=== PATIENT | male | born 1950 | race African-American/Black ===

== ENCOUNTER 2018-12-02 23:23 | Emergency (ER) | payer OTHER ==
[~2018-12-02] VITALS: Ht 167.6 cm; Wt 83.9 kg
[~2018-12-02 23:23] MED LIST: ASPIR 8181 MG ORAL; ASPIRIN81 MG ORAL; ISOSORBIDE DINI10 MG ORAL; NITRO-BID1 GM TOPIC; NITROGLYCERIN0.4 MG SL; RANITIDINE HCL150 MG ORAL; TEGRETOL200 MG PO
[2018-12-02] MEDS ORDERED: NKM (23:32)
--- NOTE | 2018-12-02 23:47 | NUR ---
ED Nurse Note: Spoke with Sanna at Poison Control: Observe for tachycardia, hypertention, hallucinations, and aggitation. More sever toxity: Seizures, hypothermia, rabdo, and renal failure. Tx: Eight hours of observation, IVFs, chemistries with liver function, EKG, seizure precautions. Benzos prn for seizures, phenobarb if seizure refractive to benzos. Repeat lab and EKG in four hours.
[2018-12-03] MEDS: Albuterol ud Inhalation HHN SCH ×2 (00:43→01:00)
[2018-12-03] MEDS: Ipratropium 0.02% Inh Soln 2.5ml UD HHN SCH ×2 (00:43→01:00)
[2018-12-03 00:46] VITALS: BP 140/76
[2018-12-03 00:54] LABS: BASOPHILS % (AUTO) 0.8 % (0.0-2.0); EOSINOPHILS % (AUTO) 2.4 % (0.0-3.0); HEMATOCRIT 46.5 % (42.0-52.0); HEMOGLOBIN 14.9 G/DL (14.2-18.0); LYMPHOCYTES % (AUTO) 24.8 % (20.0-45.0); MEAN CORPUSCULAR VOLUME 80 FL (80-99); MONOCYTES % (AUTO) 5.6 % (1.0-10.0); NEUTROPHILS % (AUTO) 66.3 % (45.0-75.0); PLATELET COUNT 294 K/UL (150-450); RED BLOOD COUNT 5.81 M/UL (4.70-6.10); RED CELL DISTRIBUTION WIDTH 13.7 % (11.6-14.8); WHITE BLOOD COUNT 11.5 K/UL (4.8-10.8)
[2018-12-03 01:06] LABS: ANION GAP 15 mmol/L (5-15); BLOOD UREA NITROGEN 12 mg/dL (7-18); CALCIUM 9.1 MG/DL (8.5-10.1); CARBON DIOXIDE 21 MMOL/L (21-32); CHLORIDE 105 MMOL/L (98-107); CREATININE 1.1 MG/DL (0.55-1.30); POTASSIUM 3.8 MMOL/L (3.5-5.1); SODIUM 141 MMOL/L (136-145)
[2018-12-03 01:19] LABS: ALANINE AMINOTRANSFERASE 29 U/L (12-78); ALBUMIN 3.3 G/DL (3.4-5.0); ALKALINE PHOSPHATASE 82 U/L (46-116); ASPARTATE AMINO TRANSFERASE 24 U/L (15-37); BILIRUBIN,TOTAL 0.3 MG/DL (0.2-1.0); CREATINE KINASE 364 U/L (26-308)
[2018-12-03] MEDS ORDERED: Morphine Sulfate 4mg/ml Inj (IV USE ONLY) IVP ONE (02:00)
--- NOTE | 2018-12-03 03:12 | NUR ---
ER Nurse Note: Pt asleep, calm, no signs of distress, VSS. Awaiting lab redraw at 0430. Will continue to montior.
--- NOTE | 2018-12-03 03:40 | NUR ---
Maty larsen in EDM - 12/03/18 at 0341 by [facility] ED Nurse Note: care endorsed to MARIYA MORALES and report given.
--- NOTE | 2018-12-03 04:16 | Emergency Room Report ---
History of Present Illness General Chief Complaint: General Complaint Source: Patient Present Illness HPI 68-year-old male presents to ED for evaluation. Patient is in police custody. Is here for senior living clearance. Patient states that he ingested 6 crack rocks tonight prior to being arrested. Complaining of shortness of breath. History of asthma. Denies chest pain. Denies fevers or chills. Denies nausea or vomiting. Denies any abdominal pain. No other aggravating relieving factors. Denies any other associated symptoms Allergies: Coded Allergies: PENICILLINS (Unverified Allergy, Unknown, 10/22/14) Patient History Past Medical History: HTN, [place], seizures Past Surgical History: none Pertinent Family History: none Social History: Reports: drug use; Denies: smoking, alcohol use Immunizations: UTD Reviewed Nursing Documentation: PMH: Agreed; PSxH: Agreed Nursing Documentation-PMH Hx Cardiac Problems: Yes - mi Hx Hypertension: Yes Hx Cancer: No Hx Gastrointestinal Problems: No Hx Neurological Problems: No Hx Seizures: Yes Review of Systems All Other Systems: negative except mentioned in HPI Physical Exam Vital Signs Date Time Temp Pulse Resp B/P (MAP) Pulse Ox O2 Delivery O2 Flow Rate FiO2 12/02/18 23:27 98.4 106 16 100 Room Air 12/03/18 00:43 21 12/03/18 00:46 140/76 Sp02 EP Interpretation: reviewed, normal General Appearance: alert, GCS 15, non-toxic, mild distress Head: normocephalic, atraumatic Eyes: bilateral eye normal inspection, bilateral eye PERRL ENT: hearing grossly normal, normal pharynx, no angioedema, normal voice Neck: full range of motion, supple/symm/no masses Respiratory: chest non-tender, speaking full sentences, wheezing Cardiovascular #1: regular rate, rhythm, no edema Cardiovascular #2: 2+ carotid (R), 2+ carotid (L), 2+ radial (R), 2+ radial (L) , 2+ dorsalis pedis (R), 2+ dorsalis pedis (L) Gastrointestinal: normal bowel sounds, non tender, soft, non-distended, no guarding, no rebound Rectal: deferred Genitourinary: normal inspection, no CVA tenderness Musculoskeletal: back normal, gait/station normal, normal range of motion, non- tender Neurologic: alert, oriented x3, responsive, motor strength/tone normal, sensory intact, speech normal Psychiatric: judgement/insight normal, memory normal, mood/affect normal, no suicidal/homicidal ideation Reflexes: 3+ bicep (R), 3+ bicep (L), 3+ tricep (R), 3+ tricep (L), 3+ knee (R) , 3+ knee (L) Skin: normal color, no rash, warm/dry, well hydrated Lymphatic: no adenopathy Medical Decision Making Diagnostic Impression: Primary Impression: Medical clearance for incarceration Additional Impression: Drug abuse ER Course Hospital Course 68-year-old M presents ED complaining of chest pain, SOB. in police custody. states he ate 6 crack rocks. Differential diagnoses include: coronary vasospasm, ACS/FL, rhabdomyolysis Clinical course Patient placed on stretcher. After initial history and physical I ordered labs , EKG, chest x-ray, KUB, nebs EKG - NSR, no acute ischemic changes interpreted by me discussed with poison control. they recommend 8 hour observation on nuclear monitoring technician. IV hydration, monitor for signs of rhabdo, Benzos prn labs reviewed- all electrolytes normal, troponins negative, no leukocytosis, hemoglobin/hematocrit stable Chest x-ray-no cardiomegaly, no rib fracture, no pneumothorax, no acute process KUB - no signs of ingested material, normal bowel pattern Repeat labs including troponin and CK were also within normal limits 4 hours later I reviewed EMR. Patient has been here multiple times for senior living clearance. Always complaining of chest pain upon arrest. workups have always been negative patient will be medically cleared. I. I feel this is a highly complex case requiring extensive working including EKG/Rhythm strip, Xray/CT/US, Blood/urine lab work, repeat exams while in ED, and administration of strong opiates/narcotics for pain control, admission to hospital or close patient follow up. Diagnosis - medical clearance for incarceration, drug abuse Stable and discharged to police custody. Instructed to followup with PMD. Return to ED if symptoms recur or worsen Labs Test 12/03/18 00:35 12/03/18 01:50 12/03/18 04:43 White Blood Count 11.5 K/UL (4.8-10.8) Red Blood Count 5.81 M/UL (4.70-6.10) Hemoglobin 14.9 G/DL (14.2-18.0) Hematocrit 46.5 % (42.0-52.0) Mean Corpuscular Volume 80 FL (80-99) Mean Corpuscular Hemoglobin 25.7 PG (27.0-31.0) Mean Corpuscular Hemoglobin Concent 32.1 G/DL (32.0-36.0) Red Cell Distribution Width 13.7 % (11.6-14.8) Platelet Count 294 K/UL (150-450) Mean Platelet Volume 5.8 FL (6.5-10.1) Neutrophils (%) (Auto) 66.3 % (45.0-75.0) Lymphocytes (%) (Auto) 24.8 % (20.0-45.0) Monocytes (%) (Auto) 5.6 % (1.0-10.0) Eosinophils (%) (Auto) 2.4 % (0.0-3.0) Basophils (%) (Auto) 0.8 % (0.0-2.0) Sodium Level 141 MMOL/L (136-145) 141 MMOL/L (136-145) Potassium Level 3.8 MMOL/L (3.5-5.1) 3.9 MMOL/L (3.5-5.1) Chloride Level 105 MMOL/L (98-107) 108 MMOL/L (98-107) Carbon Dioxide Level 21 MMOL/L (21-32) 26 MMOL/L (21-32) Anion Gap 15 mmol/L (5-15) 7 mmol/L (5-15) Blood Urea Nitrogen 12 mg/dL (7-18) 9 mg/dL (7-18) Creatinine 1.1 MG/DL (0.55-1.30) 0.8 MG/DL (0.55-1.30) Estimat Glomerular Filtration Rate > 60 mL/min (>60) > 60 mL/min (>60) Glucose Level 112 MG/DL (74-106) 122 MG/DL (74-106) Calcium Level 9.1 MG/DL (8.5-10.1) 8.3 MG/DL (8.5-10.1) Total Bilirubin 0.3 MG/DL (0.2-1.0) 0.2 MG/DL (0.2-1.0) Aspartate Amino Transf (AST/SGOT) 24 U/L (15-37) 25 U/L (15-37) Alanine Aminotransferase (ALT/SGPT) 29 U/L (12-78) 25 U/L (12-78) Alkaline Phosphatase 82 U/L (46-116) 68 U/L (46-116) Total Creatine Kinase 364 U/L (26-308) 283 U/L (26-308) Creatine Kinase MB 5.0 NG/ML (0.0-3.6) 4.0 NG/ML (0.0-3.6) Creatine Kinase MB Relative Index 1.3 1.4 Troponin I 0.005 ng/mL (0.000-0.056) 0.003 ng/mL (0.000-0.056) Total Protein 6.6 G/DL (6.4-8.2) 5.8 G/DL (6.4-8.2) Albumin 3.3 G/DL (3.4-5.0) 2.8 G/DL (3.4-5.0) Globulin 3.3 g/dL 3.0 g/dL Albumin/Globulin Ratio 1.0 (1.0-2.7) 0.9 (1.0-2.7) Urine Opiates Screen Negative (NEGATIVE) Urine Barbiturates Screen Negative (NEGATIVE) Phencyclidine (PCP) Screen Positive (NEGATIVE) Urine Amphetamines Screen Positive (NEGATIVE) Urine Benzodiazepines Screen Negative (NEGATIVE) Urine Cocaine Screen Positive (NEGATIVE) Urine Marijuana (THC) Screen Negative (NEGATIVE) Salicylates Level 1.3 ug/mL (2.8-20) Acetaminophen Level < 2 MCG/ML (10-30) EKG Diagnostic Results Rate: normal Rhythm: NSR ST Segments: no acute changes Rhythm Strip Diag. Results EP Interpretation: yes Rhythm: NSR, no PVC's, no ectopy Chest X-Ray Diagnostic Results Chest X-Ray Diagnostic Results : Chest X-Ray Ordered: Yes # of Views/Limited/Complete: 1 View Indication: Shortness of Breath EP Interpretation: Yes Interpretation: no consolidation, no effusion, no pneumothorax, no acute cardiopulmonary disease Impression: No acute disease Electronically Signed by: Electronically signed by Lawrence Steiner MD Other X-Ray Diagnostic Results Other X-Ray Diagnostic Results : X-Ray ordered: KUB # of Views/Limited Vs Complete: 1 View Indication: Pain EP Interpretation: Yes Interpretation: nonspecific bowel gas, no sbo Impression: No acute disease Electronically Signed by: Electronically signed by Lawrence Steiner MD Last Vital Signs Date Time Temp Pulse Resp B/P (MAP) Pulse Ox O2 Delivery O2 Flow Rate FiO2 12/03/18 01:11 97 17 100 Room Air 21 12/03/18 00:46 98.4 140/76 Status: improved Disposition: D/C TO LAW ENFORCEMENT IN [facility] Condition: Stable Referrals: NOT CHOSEN IPA/,REFERRING (PCP) Lawrence Steiner MD Dec 03, 2018 04:16
[2018-12-03 04:25] VITALS: BP 128/74
[2018-12-03 05:49] LABS: ANION GAP 7 mmol/L (5-15); BLOOD UREA NITROGEN 9 mg/dL (7-18); CALCIUM 8.3 MG/DL (8.5-10.1); CARBON DIOXIDE 26 MMOL/L (21-32); CHLORIDE 108 MMOL/L (98-107); CREATININE 0.8 MG/DL (0.55-1.30); POTASSIUM 3.9 MMOL/L (3.5-5.1); SODIUM 141 MMOL/L (136-145)
[2018-12-03 06:04] LABS: ALANINE AMINOTRANSFERASE 25 U/L (12-78); ALBUMIN 2.8 G/DL (3.4-5.0); ALBUMIN/GLOBULIN RATIO 0.9 (1.0-2.7); ALKALINE PHOSPHATASE 68 U/L (46-116); ASPARTATE AMINO TRANSFERASE 25 U/L (15-37); BILIRUBIN,TOTAL 0.2 MG/DL (0.2-1.0); CREATINE KINASE 283 U/L (26-308)
[2018-12-03 06:44] VITALS: BP 130/76
--- NOTE | 2018-12-03 06:46 | NUR ---
ER Nurse Note: Pt seen, treated, medically cleared for booking by ERMD. Discharge instructions and prescriptions given wtih repeat verbaliazation by pt. Pt refused to sign forms. I Pt a&ox4, VSS, no signs of dsitress, no resp distresss. All orders completed per ERMD orders. Pt able to ambulate safely without assistance. IV removed; site clean and bandaged. ID removed. Pt left with [employer] custody.
--- NOTE | 2018-12-03 11:41 | Diagnostic Imaging Report ---
Indication: Shortness of breath Technique: One view of the chest Comparison: 04/15/2015 Findings: Inspiration is suboptimal. There is some atelectasis at the left lung base. Lungs and pleural spaces are otherwise clear. Heart size is normal Impression: No acute process Hypoventilatory exam with minimal left basilar atelectasis
--- NOTE | 2018-12-03 13:23 | Cardiology Report ---
APPROVED REPORT EKG Measurement Heart [id number] ID [id number] Normal sinus rhythm Right atrial enlargement Left axis deviation Abnormal ECG
--- NOTE | 2018-12-03 13:24 | Cardiology Report ---
APPROVED REPORT EKG Measurement Heart [id number] Normal sinus rhythm Normal ECG
--- NOTE | 2018-12-03 14:53 | Diagnostic Imaging Report ---
Indication: Abdominal Technique: Supine view of the abdomen Comparison: none Findings: Bowel gas pattern is unremarkable. No masses or unusual calcifications Impression: No acute process
== END 2018-12-03 06:30 ==
LOC: EDBD 23:23 → EMR 23:49
DX: F14.10 Cocaine abuse, uncomplicated (principal); Z88.0 Allergy status to penicillin; I10 Essential (primary) hypertension; I25.2 Old myocardial infarction
CPT/HCPCS: 36415; 71045; 74018; 80053; 80307; 82550; 82553; 84484; 85025; 93005; 94640; 96361; 96374; 99284; G0480; J2270; 80329

== ENCOUNTER 2019-05-27 17:02 | Emergency (ER) | payer OTHER ==
[~2019-05-27] VITALS: Ht 170.2 cm; Wt 81.6 kg
[~2019-05-27 17:02] MED LIST changes: +NKM
--- NOTE | 2019-05-27 17:50 | NUR ---
ED Nurse Note:pt. was BIBA for medical clearance for assisted booking, he c/o general weakness and dizziness, VSS, pt. is A/Ox4, forensic screaning was done, blood sent to labs
[2019-05-27 18:03] VITALS: BP 134/64
[2019-05-27 18:04] LABS: HEMATOCRIT 44.3 % (42.0-52.0); HEMOGLOBIN 13.7 G/DL (14.2-18.0); LYMPHOCYTES % (AUTO) 26.5 % (20.0-45.0); MEAN CORPUSCULAR VOLUME 83 FL (80-99); MONOCYTES % (AUTO) 6.3 % (1.0-10.0); NEUTROPHILS % (AUTO) 64.1 % (45.0-75.0); PLATELET COUNT 310 K/UL (150-450); RED BLOOD COUNT 5.37 M/UL (4.70-6.10); RED CELL DISTRIBUTION WIDTH 13.3 % (11.6-14.8); WHITE BLOOD COUNT 9.4 K/UL (4.8-10.8)
[2019-05-27 18:24] LABS: ANION GAP 11 mmol/L (5-15); BLOOD UREA NITROGEN 14 mg/dL (7-18); CALCIUM 8.8 MG/DL (8.5-10.1); CARBON DIOXIDE 26 MMOL/L (21-32); CHLORIDE 108 MMOL/L (98-107); POTASSIUM 4.1 MMOL/L (3.5-5.1); SODIUM 145 MMOL/L (136-145)
[2019-05-27 18:36] LABS: ALANINE AMINOTRANSFERASE 39 U/L (12-78); ALBUMIN 3.4 G/DL (3.4-5.0); ALKALINE PHOSPHATASE 77 U/L (46-116); ASPARTATE AMINO TRANSFERASE 28 U/L (15-37); BILIRUBIN,TOTAL 0.3 MG/DL (0.2-1.0)
--- NOTE | 2019-05-27 18:57 | Emergency Room Report ---
History of Present Illness General Chief Complaint: Medical Clearance Source: Medical Record Present Illness HPI 69-year-old male with history of methamphetamine abuse, and hypotension brought in by police officers for medical clearance. Patient reports that he has been dizzy for the past 2 days. He reports that he fell and hit his head. Denies loss of consciousness, headache, nausea vomiting. Denies chest pain, shortness of breath, palpitation, abdominal pain, nausea vomiting. Patient also reports of left foot pain however follow-up injuring his foot. Loss of callus is noted in the bottom of his foot. Also upon examination of the patient's foot I found a pipe containing crystal mass which the police already contained. This examination was observed and witnessed by the police officers. Patient has a stable vital signs. Denies abdominal pain, urinary symptoms. Patient reports that he has been dealing with low blood pressure for years and wants to be admitted and be further looked into. Patient also has brought this up to his primary care provider however given insisting on being admitted and finding of the reason why her blood pressure. Patient denies that his methamphetamine use has anything to do with this. Denies other associated symptoms. Allergies: Coded Allergies: PENICILLINS (Unverified Allergy, Unknown, 10/22/14) Patient History Past Medical History: see triage record Past Surgical History: unable to obtain Pertinent Family History: none Immunizations: UTD Reviewed Nursing Documentation: PMH: Agreed; PSxH: Agreed Nursing Documentation-PMH Past Medical History: No History, Except For Hx Cardiac Problems: Yes - mi Hx Hypertension: Yes Hx Cancer: No Hx Gastrointestinal Problems: No Hx Neurological Problems: No Hx Seizures: Yes Review of Systems All Other Systems: negative except mentioned in HPI Physical Exam Vital Signs Date Time Temp Pulse Resp B/P (MAP) Pulse Ox O2 Delivery O2 Flow Rate FiO2 05/27/19 17:04 98.1 80 18 134/64 (87) 98 Room Air Sp02 EP Interpretation: reviewed, normal General Appearance: no apparent distress, alert, GCS 15, non-toxic Head: normocephalic, atraumatic Eyes: bilateral eye normal inspection, bilateral eye PERRL ENT: hearing grossly normal, normal pharynx, no angioedema, normal voice Neck: full range of motion, supple/symm/no masses Respiratory: chest non-tender, lungs clear, normal breath sounds, no rhonchi, no respiratory distress, speaking full sentences Cardiovascular #1: regular rate, rhythm, no edema Cardiovascular #2: 2+ carotid (R), 2+ carotid (L), 2+ radial (R), 2+ radial (L) , 2+ dorsalis pedis (R), 2+ dorsalis pedis (L) Gastrointestinal: normal bowel sounds, non tender, soft, non-distended, no guarding, no rebound Rectal: deferred Genitourinary: normal inspection, no CVA tenderness Musculoskeletal: back normal, gait/station normal, normal range of motion, non- tender, calf tenderness Neurologic: alert, oriented x3, responsive, motor strength/tone normal, sensory intact, speech normal, other - No sensory or motor deficits noted Psychiatric: judgement/insight normal, memory normal, mood/affect normal, no suicidal/homicidal ideation Skin: no rash Lymphatic: no adenopathy Medical Decision Making PA Attestation All my diagnosis and treatment plans were reviewed ad discussed with my supervising physician Dr. Cheng Diagnostic Impression: Primary Impression: Medical clearance for incarceration Additional Impressions: Head contusion Foot contusion ER Course 69-year-old male with history of methamphetamine abuse, and hypotension brought in by police officers for medical clearance. Patient reports that he has been dizzy for the past 2 days. He reports that he fell and hit his head. Denies loss of consciousness, headache, nausea vomiting. Denies chest pain, shortness of breath, palpitation, abdominal pain, nausea vomiting. Patient also reports of left foot pain however follow-up injuring his foot. Loss of callus is noted in the bottom of his foot. Also upon examination of the patient's foot I found a pipe containing crystal mass which the police already contained. This examination was observed and witnessed by the police officers. Patient has a stable vital signs. Denies abdominal pain, urinary symptoms. Patient reports that he has been dealing with low blood pressure for years and wants to be admitted and be further looked into. Patient also has brought this up to his primary care provider however given insisting on being admitted and finding of the reason why her blood pressure. Patient denies that his methamphetamine use has anything to do with this. Denies other associated symptoms. Ddx considered but are not limited to: cerebral hematoma, concussion, skull fracture, head contusion Vital signs: are WNL, pt. is afebrile H&PE are most consistent with: Head contusion, foot contusion, medical clearance ORDERS: head CT no contrast , EKG, chest x-ray, CBC, CMP, UA, tox screen, EtOH, ibuprofen ED INTERVENTIONS: NS bolus DISCHARGE: At this time pt. is stable for d/c to home. Will provide printed patient care instructions, and any necessary prescriptions. Care plan and follow up instructions have been discussed with the patient prior to discharge. Patient Verbalizing that I am treating her differently since he is going to long term and I have not worked him up thoroughly in order to do that for his chronic issues I should keep him overnight and hospitalized him. Patient reports that he has history of hypertension and he has been here multiple times for same reason. However patient has never follow-up with his primary care provider in this regard has never seen a lath tier or neurologist. Patient keeps saying that he keeps falling and injuring his head. Completely denies the fact that he is smoking and also using methamphetamine and does not want to believe that that can contribute to his symptoms. I explained to the patient that I have treated him just like any other patient and in order to find out further reasons for his hypotension and dizziness patient to be evaluated by primary care provider and perhaps to be sent to specialist accordingly. at this time proper assessment and treatment was done EKG to rule out dizziness secondary to cardiac issue, blood work to rule out infection and electrolyte abnormality, urine tox screen. Patient also had a scan done and was normal. Patient was discharged to go to incarceration. Please have this is also explained to him that he needs to follow-up with his primary care provider after being incarcerated. Patient wanted my name and information down. Reported that he is usually get treated differently when he comes for medical clearance. I also explained to him that I did all the appropriate physical examination ruling out stroke symptoms and other causes of dizziness in order appropriate imaging and blood work. And him having the status of incarceration did not affect my medical judgment. I also told patient that he is more than welcome to return to the emergency room for worsening symptoms. I advised the patient to stop using methamphetamine. Patient however did not give a urine sample. Therefore tox screen was not done and urine analysis was not done. EKG Diagnostic Results Rate: normal Rhythm: NSR ST Segments: no acute changes Chest X-Ray Diagnostic Results Chest X-Ray Diagnostic Results : Chest X-Ray Ordered: Yes # of Views/Limited/Complete: 1 View Indication: Other EP Interpretation: Yes CAROL ANN Xray: Interpretation reviewed, by supervising MD, and agrees with findings. Interpretation: no consolidation, no effusion, no pneumothorax Impression: No acute disease Electronically Signed by: Brennon Horta PA-C CT/MRI/US Diagnostic Results CT/MRI/US Diagnostic Results : Imaging Test Ordered: CT head no contrast Impression WNL Last Vital Signs Date Time Temp Pulse Resp B/P (MAP) Pulse Ox O2 Delivery O2 Flow Rate FiO2 05/27/19 18:03 80 18 Room Air 05/27/19 18:03 98.1 134/64 98 Disposition: D/C TO [facility] ENFORCEMENT IN [facility]UST Condition: Stable Scripts Ibuprofen* (MOTRIN*) 600 Mg Tablet 600 MG ORAL THREE TIMES A DAY, #30 TAB 0 Refills Prov: Brennon Chiang 05/27/19 Referrals: NOT CHOSEN [facility]/,REFERRING (PCP) Patient Instructions: Facial or Scalp Contusion, [id number], Foot Contusion, [id number] Additional Instructions: Take medication as directed follow-up with your primary care provider if worsening symptoms return to the emergency room follow-up with building performance specialist regarding your foot as there are old findings of degenerative changes and deformity. Brennon Chiang May 27, 2019 18:57
[2019-05-27] MEDS ORDERED: IBUPROFEN600 MG ORAL (18:58)
[2019-05-27 19:21] VITALS: BP 133/85
--- NOTE | 2019-05-27 19:22 | NUR ---
ED Nurse Note:pt. was cleared for d/c by er PA, IV line was removed, [employer] officer signed d/c instructions and pt. was taken for [facility] booking
[2019-05-27 19:23] VITALS: BP 133/85
--- NOTE | 2019-05-28 11:02 | Diagnostic Imaging Report ---
Indication: Headache and head trauma Technique: Contiguous 5 mm thick transaxial imaging of the head obtained in a Siemens Sensation [address] scanner. Soft tissue and bone windows generated. Automatic Exposure Control was utilized. Total Dose length Product (DLP): 1428.[address] Dose Index Volume (CTDIvol): 70.38 mGy Comparison: none Findings: There is minimal prominence of the ventricles, basal cisterns, and cerebral sulci consistent with atrophy, which appears age appropriate. There is no midline shift, edema, acute hemorrhage, mass effect, or abnormal extra-axial fluid collections. Bones are unremarkable. Impression: No acute intracranial bleed, mass effect or edema. Mild age-appropriate atrophy of the brain. The CT scanner at [facility] is accredited by the [employer] and the scans are performed using dose optimization techniques as appropriate to a performed exam including Automatic Exposure control.
--- NOTE | 2019-05-28 13:28 | Diagnostic Imaging Report ---
Indication: Chest pain Comparison: 12/03/2018 A single view chest radiograph was obtained. Findings: Cardiomediastinal appearance is within normal limits for age. The lungs are clear. Pulmonary vascularity is appropriate. The diaphragmatic contour is smooth and costophrenic angles are sharp. No pleural effusions are identified. The bones are unremarkable. Impression: No acute findings
--- NOTE | 2019-05-28 13:31 | Diagnostic Imaging Report ---
Indication: Foot pain Comparison: None Findings: 3 views of the left foot were obtained. No acute fractures, malalignment, erosions or periostitis are identified. Hammertoes noted second through fifth toes. Some degenerative disease at the base of the first metatarsal noted. Soft tissues are unremarkable. Impression: No acute findings
== END 2019-05-27 19:24 ==
LOC: EDBD 17:02 → EMR 17:40
DX: S00.93XA Contusion of unspecified part of head, initial encounter (principal); S90.32XA Contusion of left foot, initial encounter; R42 Dizziness and giddiness; R07.9 Chest pain, unspecified; Z88.0 Allergy status to penicillin; I10 Essential (primary) hypertension; I25.2 Old myocardial infarction; W18.30XA Fall on same level, unspecified, initial encounter; Y92.9 Unspecified place or not applicable
CPT/HCPCS: 70450; 71045; 73630; 80053; 85025; 93005; 96360; 99284; G0480; 80329